=== PATIENT | male | born 1990 | race African-American/Black ===

== ENCOUNTER 2022-10-27 23:16 | Emergency (ER) | payer MEDICAID, OTHER ==
[~2022-10-27] VITALS: Ht 185.4 cm; Wt 81.0 kg
[2022-10-27 23:29] VITALS: BP 127/76; O2SAT 98
[2022-10-27] MEDS ORDERED: LORAZEPAM 1MG TABLET PO ONE (23:45)
[2022-10-28 04:43] VITALS: PULSE 104; RESP 20; TEMP 97.7
[2022-10-28] MEDS ORDERED: LORAZEPAM 1MG TABLET PO NR (04:45)
== END 2022-10-28 04:44 | disposition home or self-care (01) ==
LOC: ER 23:16
DX: F15.90 Other stimulant use, unspecified, uncomplicated (principal); F12.90 Cannabis use, unspecified, uncomplicated; R00.0 Tachycardia, unspecified; Z88.0 Allergy status to penicillin
CPT/HCPCS: 99283